=== PATIENT | female | born 1995 | race Caucasian/White ===

== ENCOUNTER → 2020-08-14 | Outpatient (CLI) | payer OTHER ==
--- NOTE | 2020-08-15 08:20 | EKG ---
[address] [address] ELECTROCARDIOGRAM REPORT Name: ISADORA JONES Room #: REG [facility]#: [id number] Admission: 08/14/20 Attend Phys: Melody Lazo MD Discharge: Date of : [birth year] Report #: [id number] [facility] Test Date: 2020-08-14 Test Time: 15:53:21 Pat Name: ISADORA JONES Department: Room: Gender: F Phlebotomy Technologist: FSCHWALBE : 1995 Requested By: Melody Lazo Order Number: [id number] MD: Wild Craven Measurements Intervals [place] Rate: 83 P: 66 OR: 158 QRS: 75 QRSD: 75 T: 47 QT: 359 QTc: 422 Interpretive Statements Sinus rhythm Baseline wander in lead(s) V6 No previous ECG available for comparison Electronically Signed On 08-15-2020 8:20:37 CDT by Wild Craven [email or web address] <ELECTRONICALLY SIGNED> By: Wild Craven MD, [facility] 08/15/20 0820 1553 1553 Wild Craven MD, FACC /EPI
== END ==
LOC: CV 15:33
PROVIDERS: ATTEND Pediatrics
DX: I49.9 Cardiac arrhythmia, unspecified (principal); R00.0 Tachycardia, unspecified